=== PATIENT | female | born 1970 | race Caucasian/White ===

== ENCOUNTER 2024-07-07 08:58 | Outpatient (CLI) | payer OTHER | END 2024-07-07 09:01 | disposition home or self-care (01) | LOC: SONOGRAMA 08:58 | PROVIDERS: ATTEND Pathology Anatomic Pathology & Clinical Pathology | DX: D44.0 Neoplasm of uncertain behavior of thyroid gland (principal); E04.2 Nontoxic multinodular goiter ==